=== PATIENT | male | born 1965 | race Two or more races ===

== ENCOUNTER 2024-06-10 07:58 | Outpatient (CLI) | payer OTHER ==
[2024-06-10 09:26] LABS: ANION GAP 8 (10.0-20.0); BLOOD UREA NITROGEN 24 mg/dL (7-18); BUN CREA RATIO 32 (7.0-25.0); CALCIUM 8.6 mg/dL (8.5-10.1); CARBON DIOXIDE 31 mEq/L (21-32); CHLORIDE 108 mmol/L (98-107); CREATININE SERUM 0.76 mg/dL (0.70-1.30); GFR 104.98; GLUCOSE FASTING 81 mg/dL (65-100); OSMOLALITY SERUM 286 MOSM/KG (275-295); POTASSIUM 4.63 mEq/L (3.5-5.1); SODIUM 142 mmol/L (136-145)
[2024-06-10 09:33] LABS: PROSTATIC SPECIFIC ANTIGEN < 0.010 NG/ML (0.010-4.00)
== END 2024-06-10 08:01 | disposition home or self-care (01) ==
LOC: LAB 07:58
PROVIDERS: ATTEND Family Medicine
DX: I11.9 Hypertensive heart disease without heart failure (principal); E03.8 Other specified hypothyroidism; E78.5 Hyperlipidemia, unspecified; R73.01 Impaired fasting glucose; R74.01 Elevation of levels of liver transaminase levels; E79.0 Hyperuricemia without signs of inflammatory arthritis and tophaceous disease; R63.4 Abnormal weight loss; E55.9 Vitamin D deficiency, unspecified; E53.9 Vitamin B deficiency, unspecified; R19.01 Right upper quadrant abdominal swelling, mass and lump; N40.0 Benign prostatic hyperplasia without lower urinary tract symptoms